=== PATIENT | male | born 1960 | race Caucasian/White ===

== ENCOUNTER 2024-07-15 13:09 | Inpatient (IN) | payer OTHER, SELFPAY ==
[2024-07-15] VITALS (7 sets, daily range): BP systolic 143–175; BP diastolic 88–101; PULSE 61–69; RESP 18; TEMP 36.7–36.8; O2SAT 95–99; BMI 24.4
--- NOTE | 2024-07-15 13:11 | XR_ITS ---
WS: [id number] Portable AP upright chest, 07/15/2024 Clinical Data: cp Comparison: None, Findings: No nodules, masses or effusions are seen. The heart is normal. The pulmonary vascularity is not increased. No pneumonia or pneumothorax is seen. The aortic arch and descending thoracic aorta s how minimal tortuosity. XR/XR chest 1V portable [id number] Impression: Atherosclerosis.
--- NOTE | 2024-07-15 13:11 | ECG_ITS ---
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 Measurements Intervals [place] Rate: 66 P: -31 NV: 208 QRS: 29 QRSD: 100 T: 37 QT: 376 QTc: 395 Interpretive Statements SINUS RHYTHM No previous ECG available for comparison Electronically Signed On 07-15-2024 15:09:02 FRUIT CHECKER by Albert Sweet M.D. [id number]
[2024-07-15 14:21] LABS: Basophils % 0.7 %; Eosinophils % 0.2 %; Hematocrit 35.5 % (37-53); Lymphocytes # 0.5 10^3/uL (0.8-4.8); Lymphocytes % 11.3 %; Mean Corpuscular HGB Conc 34.9 g/dL (30-55); Mean Corpuscular Hemoglobin 33.9 pg (27-33); Mean Platelet Volume 7.9 fL (7.4-10.4); Monocytes # 0.3 10^3/uL (0.2-0.9); Neutrophils # 3.34 10^3/uL (1.8-7.7); Neutrophils % 78.4 %; Nucleated Red Blood Cells % 0 %; Platelet Count 205 10^3/cmm (157-399); Red Blood Count 3.66 10^6/uL (3.85-5.65); Red Cell Distribution Width 11.1 % (12.1-15.1); White Blood Count 4.26 10^3/uL (3.29-11.43)
[2024-07-15 14:42] LABS: Troponin(5th) Baseline 10 ng/L (0-15)
[2024-07-15 14:44] LABS: Alanine Aminotransferase 37 U/L (0-41); Albumin Level 4.7 g/dL (3.5-5.2); Alkaline Phosphatase 90 U/L (40-130); Anion Gap 15.5 (5-19); Aspartate Amino Transferase 32 U/L (0-40); Blood Urea Nitrogen 10 mg/dL (8-23); Calcium 9.1 mg/dL (8.5-10.5); Carbon Dioxide 24 mmol/L (22-29); Chloride 88 mmol/L (98-107); Creatinine Clr Calc Pharmacy 108.6508; Globulin 2.5 g/dL (1.3-4.6); Glomerular Filtration Rate 98.3 mL/min (90-130); Glucose 118 mg/dL (65-115); Osmolality Calculated 256 mOsm/kg (285-295); Potassium 4.5 mmol/L (3.5-5.1); Sodium 123 mmol/L (136-145); Total Bilirubin 0.3 mg/dL (0.15-1.2); Total Protein 7.2 g/dL (6.6-8.7)
--- NOTE | 2024-07-15 15:03 | ED_ITS ---
HPI - Chest Pain 2 General: Chief Complaint: Chest Pain Stated Complaint: weakness and tightness in chest Time Seen by Provider: 07/15/24 14:54 Source: patient Mode of arrival: ambulatory Limitations: no limitations History of Present Illness: 63-year-old male states that he started having some chest pains earlier today states that it is a sharp pain is since resolved states he is also been having some generalized weakness he said that is been going for some time he denies any fevers denies any shortness of breath he denies any vomiting or diarrhea has history of hypertension no other medical issues in the past. Associated symptoms: Deny abdominal pain, dyspnea, fever(s), nausea or vomiting Related Data Home Medications Medication Instructions Recorded Confirmed lansoprazole 15 mg capsule,delayed 15 mg PO DAILY 09/26/22 09/26/22 release (Prevacid 24Hr) lisinopril 10 mg tablet 10 mg PO DAILY 09/26/22 09/26/22 tamsulosin 0.4 mg capsule (Flomax) 0.4 mg PO DAILY 09/26/22 09/26/22 Allergies Allergy/AdvReac Type Severity Reaction Status Date / Time Sulfa (Sulfonamide Allergy Unknown Unknown Verified 07/15/24 13:41 Antibiotics) Review of Systems 2 Const: Reports: fatigue; Denies: fever(s), chills, body aches or change in appetite ENMT: Denies: throat pain or dental pain Card: Reports: chest pain Resp: Denies: dyspnea GI: Denies: abdominal pain, nausea, vomiting or diarrhea Musc: Denies: neck pain or back pain Skin/Breast: Denies: rash Neuro: Denies: headache(s) PFSH ED 2 PFSH: Medical History (Updated 07/15/24 @ 15:10 by Miko Avelar MD) BPH (benign prostatic hyperplasia) Hypertension Social History Smoking and tobacco/nicotine status: never used tobacco/nicotine Physical Exam 2 Const: COMMON NORMALS: patient oriented x3 HENMT: COMMON NORMALS: normocephalic and atraumatic HEAD & SCALP: n ormocephalic and atraumatic Eye: COMMON NORMALS: Equal, round and reactive pupils present and EOMs intact bilaterally PUPIL: Yes Equal, round and reactive pupils present Neck/C-Spine: COMMON NORMALS: full ROM and supple Chest: COMMONS NORMALS: normal inspection of the chest Resp: COMMON NORMALS: normal respiratory effort, No retractions, No use of accessory muscles and clear to auscultation bilaterally AUSCULTATION: clear to auscultation bilaterally Cardio: COMMON NORMALS: regular rate, regular rhythm and No murmurs present (Cardio) RATE: regular rate RHYTHM: regular rhythm Extremity: COMMON NORMALS: normal to inspection and full ROM Neuro: COMMON NORMALS: patient oriented x3, moves all extremities and no focal motor deficits Psych: COMMON NORMALS: mental status grossly normal, Normal thought process present and cooperative THOUGHT PROCESS: Normal thought process present Skin: COMMON NORMALS: no rashes or lesions noted and no wounds GENERAL SKIN EXAM: no rashes or lesions noted Course 2 Vital Signs: Vital signs: Vital Signs Temperature 98.1 F 07/15/24 13:45 Pulse Rate 68 07/15/24 13:45 Respiratory Rate 18 07/15/24 13:45 Blood Pressure 175/91 07/15/24 13:45 Pulse Oximetry 98 07/15/24 13:45 MDM - Chest Pain Medical Decision Making Patient presents here with chest pain initial troponin here is negative he had some weakness as well his sodium here is 123 no known history of hyponatremia I spoke to the hospitalist will admit for hyponatremia. Medical Records I reviewed the patient's medical records. Lab Data I reviewed the patient's lab results. 07/15/24 14:15 07/15/24 14:15 Radiology Impressions Chest X-Ray 07/15/24 13:11 Impression: Atherosclerosis. Laboratory Results WBC 4.26 10^3/uL (3.29-11.43) 07/15/24 14:15 RBC 3.66 10^6/uL (3.85-5.65) L 07/15/24 14:15 Hgb 12.40 g/dL (11.27-16.99) 07/15/24 14:15 Hct 35.5 % (37-53) L 07/15/24 14:15 MCV 97.0 fl (82-101) 07/15/24 14:15 MCH 33.9 pg (27-33) H 07/15/24 14:15 MCHC 34.9 g/dL (30-55) 07/15/24 14:15 RDW 11.1 % (12.1-15.1) L 07/15/24 14:15 Plt Count 205 10^3/cmm (157-399) 07/15/24 14:15 MPV 7.9 fL (7.4-10.4) 07/15/24 14:15 Neut % (Auto) 78.4 % 07/15/24 14:15 Lymph % (Auto) 11.3 % 07/15/24 14:15 Winkler % (Auto) 8.0 % 07/15/24 14:15 Eos % (Auto) 0.2 % 07/15/24 14:15 Baso % (Auto) 0.7 % 07/15/24 14:15 Neut # (Auto) 3.34 10^3/uL (1.8-7.7) 07/15/24 14:15 Lymph # (Auto) 0.5 10^3/uL (0.8-4.8) L 07/15/24 14:15 Winkler # (Auto) 0.3 10^3/uL (0.2-0.9) 07/15/24 14:15 Eos # (Auto) 0.0 10^3/uL (0.0-0.8) 07/15/24 14:15 Baso # (Auto) 0.0 10^3/uL (0.0-0.1) 07/15/24 14:15 Nucleated RBC % (auto) 0 % 07/15/24 14:15 Nucleated RBCs # 0.0 /100WBC 07/15/24 14:15 Sodium 123 mmol/L (136-145) L 07/15/24 14:15 Potassium 4.5 mmol/L (3.5-5.1) 07/15/24 14:15 Chloride 88 mmol/L (98-107) L 07/15/24 14:15 Carbon Dioxide 24 mmol/L (22-29) 07/15/24 14:15 Anion Gap 15.5 (5-19) 07/15/24 14:15 BUN 10 mg/dL (8-23) 07/15/24 14:15 Creatinine 0.8 mg/dL (0.7-1.2) 07/15/24 14:15 GFR Calculation 98.3 mL/min (90-130) 07/15/24 14:15 Glucose 118 mg/dL (65-115) H 07/15/24 14:15 Calculated Osmolality 256 mOsm/kg (285-295) L 07/15/24 14:15 Calcium 9.1 mg/dL (8.5-10.5) 07/15/24 14:15 Total Bilirubin 0.3 mg/dL (0.15-1.2) 07/15/24 14:15 AST 32 U/L (0-40) 07/15/24 14:15 ALT 37 U/L (0-41) 07/15/24 14:15 Alkaline Phosphatase 90 U/L (40-130) 07/15/24 14:15 Troponin T Baseline 10 ng/L (0-15) 07/15/24 14:15 Total Protein 7.2 g/dL (6.6-8.7) 07/15/24 14:15 Albumin 4.7 g/dL (3.5-5.2) 07/15/24 14:15 Globulin 2.5 g/dL (1.3-4.6) 07/15/24 14:15 All radiology interpretation(s) finalized by discharge Discharge Plan Discharge Patient Disposition: Admitted As Inpatient Clinical Impression: Chest pain, Hyponatremia Condition: Stable Prescriptions: No Action lisinopril 10 mg tablet 10 mg PO DAILY tamsulosin [Flomax] 0.4 mg capsule 0.4 mg PO DAILY lansoprazole [Prevacid 24Hr] 15 mg capsule,delayed release(DR/EC) 15 mg PO DAILY Coding Level of Care Code ED Hypoid Gear Generator for Thong Taylor
--- NOTE | 2024-07-15 15:09 | PM.HP ---
Providers/Chief Complaint Chief Complaint: weakness and tightness in chest History of Present Illness Mustapha Solo is a 63 year old male with past medical history of hypertension, daily beer drinker with possible history of hyponatremia in the past which was thought to be in setting of beer consumption by her PCP came to the ER today because of chest pressure along with dizziness which happened earlier today morning while he was working at home. Symptoms started when he was trying to get wood in his basement. Complained of chest pressure which was central nonradiating with some heaviness in his shoulder along with dizziness. Denied any diaphoresis nausea or vomiting. Had similar complaints twice almost a month ago while he was working. Did not have any similar symptoms in between both at rest or exertion. Denies any history of smoking, personal history of CAD. Denies any family history of CAD but does carry significant stroke history in family. In the ER he was found to have hyponatremia with sodium level of 123 hence medicine team was consulted. Patient currently denies any nausea vomiting, headache. Review of Systems General: Reports: 10 or more systems reviewed and unremarkable except in HPI and below Const: Denies: fever(s), chills, body aches, change in appetite, change in weight, malaise, night sweats, diaphoresis, change in sleep pattern, daytime sleepiness or snoring Eyes: Denies: change in vision, blurry vision, photophobia, eye discomfort or eye discharge ENMT: Denies: throat pain, enlarged tonsils, hoarseness, mouth pain, oral sores, dry mouth, tinnitus, nasal congestion or post nasal drip Card: Denies: chest pain, palpitations, irregular heart rhythm, edema, swelling of feet/ankles, lightheadedness, syncope, pre-syncope, dyspnea on exertion, orthopnea, leg pain with exertion or acrocyanosis Resp: Denies: dyspnea, productive cough, non-productive cough, wheezing, stridor, pain on inspiration, change in phlegm color, hemoptysis or chest congestion GI: Denies: abdominal pain, nausea, vomiting, hematemesis, coffee ground emesis, dysphagia, heartburn, diarrhea, constipation, bloating, GI cramping, change in bowel habits, pain on defecation, hematochezia or melena : Denies: flank pain, difficulty urinating, dysuria, urinary frequency, urinary urgency, urinary hesitancy, urinary dribbling, difficulty starting urination, change in urine stream, nocturia or hematuria Musc: Denies: neck pain, back pain, extremity pain, joint pain, joint swelling, joint redness, joint stiffness or limited range of motion Neuro: Denies: headache(s), numbness in extremities, weakness in extremities, sensory changes, lack of coordination, difficulty walking, frequent falls, dizziness, vertigo, confusion, Slurred speech present, difficulty communicating thoughts or seizure-like activity Psych: Denies: anxiety, depression, mood swings, panic attacks, hopelessness or irritability Endo: Denies: polyuria, polydipsia, tired all the time, cold intolerance, excessive sweating, flushing or heat intolerance Buster/Lymph: Denies: easy bruising or easy bleeding All/Imm: Denies: tongue swelling, facial swelling or acute wheezing Medications/Allergies Home Medications Medication Instructions Recorded Confirmed Last Taken Type lansoprazole 15 mg capsule,delayed 15 mg PO DAILY 09/26/22 07/15/24 07/15/24 History release (Prevacid 24Hr) tamsulosin 0.4 mg capsule (Flomax) 0.4 mg PO DAILY 09/26/22 07/15/24 07/15/24 History opytzifixjg-dncacekva-rgb C-Mn 500 1 cap PO DAILY 07/15/24 07/15/24 07/15/24 History mg-400 mg capsule olmesartan 20 mg tablet 20 mg PO DAILY 07/15/24 07/15/24 07/15/24 History vitamin with calcium 1 tab PO DAILY 07/15/24 07/15/24 07/15/24 History no.72-iron 27 mg-folic acid 1 mg tablet (WesTab Plus) Allergies Allergy/AdvReac Type Severity Reaction Status Date / Time Sulfa (Sulfonamide Allergy Unknown Unknown Verified 07/15/24 13:41 Antibiotics) PFSH Acute PFSH: Medical History (Updated 07/15/24 @ 15:10 by Miko Avelar MD) BPH (benign prostatic hyperplasia) Hypertension Family History (Updated 07/15/24 @ 16:58 by Miko Avelar MD) Other Stroke Denies family history of CAD (coronary artery disease) Social History (Updated 07/15/24 @ 16:57 by Miko Avelar MD) Smoking and tobacco/nicotine status: never used tobacco/nicotine Alcohol intake: current Alcohol intake frequency: 3 or more drinks per day Alcohol type: beer Substance/Drug Use: never Adopted: No Caregiver/support person: Yes Lives independently: Yes Household members: spouse Housing: House Marital status: Vitals/I&O/Wt Last Vital Signs Temp 98.1 F 07/15/24 13:45 Pulse 68 07/15/24 13:45 Resp 18 07/15/24 13:45 BP 175/91 07/15/24 13:45 Pulse Ox 98 07/15/24 13:45 07/15/24 07/15/24 07/15/24 06:59 14:59 22:59 Intake Total 0 / 0 Balance 0 / 0 Weight last 48 hrs Weight 81.647 kg Physical Exam Narrative: General: No acute distress, AO x3, dehydrated HEENT: PERRLA, pupils bilaterally equal and reactive Chest: Normal vesicular breath sounds, no added sounds, equal good air entry bilaterally CVS: S1-S2 regular, no murmurs, no tachycardia, no gallops, no rubs Abdomen: Soft, nontender, no organomegaly, bowel sounds present Neuro: No focal deficits, no facial deformity, AO x3, power 5/5 in all limbs Data 07/15/24 14:15 07/15/24 14:15 A&P Assessment and plan (1) Hyponatremia: Likely acute on chronic. Do not have baseline sodium levels. Could be in setting of chronic alcohol use. Drinks 3 to 4 cans of beer daily. Check urine lites, urine creatinine, urinalysis. Appreciate serum osmolality. Start on normal saline at 75 cc/h. Check sodium levels every 8 hours. Target correction 6 to 8 mEq in next 24 hours. Check TSH, B12, folate levels, A1c, lipid panel. (2) Chest pain: Atypical. Could be in setting of gastritis. Cycle troponin, check A1c, lipid panel. Check echocardiogram. N.p.o. after midnight for Lexiscan stress test. (3) Hypertension: Goal blood pressure less than 140/90 mmHg. Continue with home dose of olmesartan. Uptitrate as per goal blood pressure. (4) BPH (benign prostatic hyperplasia): Continue with Flomax. Plan Chronic alcohol use: Drinks 3 to 4 cans of beer daily. Denies any history of withdrawal symptoms. [facility] protocol. Full code Regular diet, n.p.o. after midnight Protonix OPD prophylaxis Heparin 5000 every 12 hourly for DVT prophylaxis Attestations Medical Necessity Statement*: Admission for more than 2 midnights for management of hyponatremia, chest pressure while ACS is ruled out Diagnoses Hyponatremia E87.1 Chest pain R07.9 Hypertension I10 BPH (benign prostatic hyperplasia) N40.0
--- NOTE | 2024-07-15 15:11 | ECG_ITS ---
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 Measurements Intervals [place] Rate: 67 P: 16 [place]: 204 QRS: 11 QRSD: 104 T: 18 QT: 379 QTc: 401 Interpretive Statements SINUS RHYTHM Compared to ECG 07/15/2024 13:42:45 No significant changes Electronically Signed On 07-15-2024 15:11:13 PRODUCT SUPPORT TECHNICIAN by Albert Sweet M.D. [id number]
[2024-07-15] MEDS: sodium chloride 0.9% 1,000 ML 999 ML IV (15:32)
[2024-07-15 15:47] LABS: Alcohol Level < 10 mg/dL (0-10)
[2024-07-15 15:54] LABS: Procalcitonin 0.04 ng/mL (0-0.5)
[2024-07-15 15:56] LABS: Bilirubin Urine Negative (Negative); Blood Urine Negative (Negative); Glucose Urine UA Negative (Normal); Ketones Urine Negative (Negative); Leukocyte Esterase Urine Negative (Negative); Nitrate Urine Negative (Negative); Protein Urine Negative (Negative); Specific Gravity, Urine 1.004 (1.005-1.030); Urine Appearance Clear (CLEAR); Urine Color Yellow (Yellow); Urobilinogen Urine 0.2 mg/dL (Negative); pH Urine 6.5 (5-7)
[2024-07-15 16:01] LABS: Bacteria Urine None Seen /hpf; Hyaline Casts Urine 0-4 /lpf; RBC Urine 0-2 /hpf (0-2); Squamous Epithelial Cell Urine 0-5 /hpf (0-5); WBC Urine 0-5 /hpf (0-5)
[2024-07-15 16:13] LABS: Potassium, Radom Urine 10 mmol/L; Urine Random Chloride 30 mmol/L; Urine Random Sodium 28 mmol/L
--- NOTE | 2024-07-15 17:02 | USCV_ITS ---
Mustapha Solo Age: 63 Gender: M : 1960 Exam Date: 07/15/2024 19:25 Ordering Phys: Miko Avelar MD Technologist: KRISTEN Exam Location: [facility] Indication: htn BP: 175 / 91 HR: 65 Rhythm: Sinus Technical Quality: Adequate MEASUREMENTS (Male / Female) Normal Values 2D ECHO LV Diastolic Diameter PLAX 4.7 cm 4.2 - 5.9 / 3.9 - 5.3 cm IVS Diastolic Thickness 1.5 cm 0.6 - 1.0 / 0.6 - 0.9 cm IVS Systolic Thickness 1.7 cm LVPW Diastolic Thickness 1.3 cm 0.6 - 1.0 / 0.6 - 0.9 cm LVPW Systolic Thickness 1.7 cm LVOT Diameter 2.1 cm LV Ejection Fraction 2D Teich 67.6 % LV Ejection Fraction MOD 4C 60.8 % LV Ejection Fraction MOD 2C 66.5 % LV Ejection Fraction 2C AL 66.1 % LA Diameter 3.2 cm LA Sys Volume AL 70.2 cm cubed LA Sys Volume Index AL 34.4 cm cubed/m squared Aorta at Sinotubular Diameter 3.0 cm IVC Diameter 1.4 cm M-MODE LA Ao Ratio MM 1.4 AV Cusp Separation MM 2.1 cm DOPPLER AV Peak Velocity 127.0 cm/s LVOT Peak Velocity 101.0 cm/s AV Area Cont Eq vti 2.7 cm squared AV Area Cont Eq pk 2.7 cm squared MV Peak Velocity 100.0 cm/s MV Area PHT 2.6 cm squared Mitral E to A Ratio 0.9 TV Peak E Velocity 49.0 cm/s PV Peak Velocity 101.0 cm/s FINDINGS Left Ventricle Normal left ventricular size and systolic function, EF 65%.no regional wall motion abnormalities. Mild left ventricular hypertrophy. Some features of grade 1 left-ventricular diastolic dysfunction Right Ventricle The right ventricle is normal in size and function. Right Atrium The right atrium is normal in size. Left Atrium The left atrium is normal in size. Mitral Valve No gross morphologic abnormalities noted Aortic Valve No gross morphologic abnormalities noted Tricuspid Valve No gross morphologic abnormalities noted Pulmonic Valve No gross morphologic abnormalities noted Pericardium Normal pericardium without effusion. Aorta Normal ascending aorta dimension. IVC Normal inferior vena cava. CONCLUSIONS Normal left ventricular size and systolic function, EF 65%.no regional wall motion abnormalities. Mild left ventricular hypertrophy. Some features of grade 1 left-ventricular diastolic dysfunction. Normal cardiac chamber sizes There is no pericardial effusion. There are no intracardiac masses. No similar previous studies are available for comparison Dr Rosaura Rios MD FACC (Electronically Signed) Final Date: 15 July 2024 23:58 S
[2024-07-15 17:13] LABS: Troponin 5 2HR 9.16 ng/L (0-15)
[2024-07-15 17:17] LABS: Troponin 5 2HR Delta -0.84 ABS# (0-10)
[2024-07-15] MEDS: sodium chloride 0.9% 1,000 ML 75 ML IV (17:30)
[2024-07-15] MEDS: pantoprazole 40 mg SDV IVP (17:44)
--- NOTE | 2024-07-15 17:55 | ECG_ITS ---
[employer] 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 Interpretive Statements Lung unchanged pre/post procedure; Intraprocedure shortess of breath; Symptoms resoled by discharge PROCEDURE: At the baseline, the EKG revealed sinus bradycardia with a rate of 57 bpm. First-degree AV block.. The baseline heart was 57 bpm with a blood pressue of 151/99 mm of Hg Lexiscan was infused over a period of 20 seconds. A total of 0.4 milligrams of Lexiscan was infused. The stress phase was continued for a total of 5 minutes. Heart rate at the end of the stress phase was 76 bpm with a blood pressure 158/93 mm of Hg. The EKG at the peak infusion revealed no significant changes. Sestamibi was injected 20 seconds after the Lexiscan infusion. Heart rate at the end of the recovery phase was 76 bpm with a blood pressure of 162/97 mm of Hg. CONCLUSION: 1. No significant EKG changes with the LexiScan infusion 2. No LexiScan induced chest pain or cardiac arrhythmia 3. Normal blood pressure and heart rate response 4. Sestamibi/sestamibi perfusion scan pending; see separate report. Electronically Signed On 07-18-2024 12:49:01 EGG PRODUCER by Rosaura Rios M.D. [id number]
[2024-07-15] MEDS: heparin 5,000 unit/mL INJ 1 mL 5000 UNIT SUBCUT (18:31)
[2024-07-15 19:33] LABS: Anion Gap 21.3 (5-19); Blood Urea Nitrogen 11 mg/dL (8-23); Calcium 9.4 mg/dL (8.5-10.5); Carbon Dioxide 23 mmol/L (22-29); Chloride 90 mmol/L (98-107); Creatinine Clr Calc Pharmacy 124.1723; Glomerular Filtration Rate 114.6 mL/min (90-130); Glucose 106 mg/dL (65-115); Iron 102 ug/dL (59-158); Osmolality Calculated 270 mOsm/kg (285-295); Percent Saturation 35.9 % (20-50); Potassium 4.3 mmol/L (3.5-5.1); Sodium 130 mmol/L (136-145); Thyroid Stimulating Hormone 2.65 uIU/mL (0.27-4.20); Total Iron Binding Capacity 284 mcg/dl; Unsaturated Iron Binding 182 ug/dL (112-347); Vitamin B12 398 pg/mL (232-1245)
[2024-07-15 20:45] LABS: Troponin 5 6HR 12.17 ng/L (0-15); Troponin 5 6HR Delta 2.17 ng/L (0-12)
[2024-07-16 01:39] LABS: Anion Gap 15.3 (5-19); Blood Urea Nitrogen 10 mg/dL (8-23); Carbon Dioxide 23 mmol/L (22-29); Chloride 95 mmol/L (98-107); Creatinine Clr Calc Pharmacy 124.1723; Glomerular Filtration Rate 114.6 mL/min (90-130); Glucose 97 mg/dL (65-115); Osmolality Calculated 267 mOsm/kg (285-295); Potassium 4.3 mmol/L (3.5-5.1); Sodium 129 mmol/L (136-145)
[2024-07-16 03:59] VITALS: BP 151/90; PULSE 57; RESP 17; TEMP 36.7; O2SAT 95
[2024-07-16 05:43] LABS: Basophils % 0.5 %; Eosinophils # 0.1 10^3/uL (0.0-0.8); Eosinophils % 2.6 %; Hematocrit 34.9 % (37-53); Lymphocytes % 24.8 %; Mean Corpuscular HGB Conc 35.8 g/dL (30-55); Mean Corpuscular Hemoglobin 33.7 pg (27-33); Mean Corpuscular Volume 94.1 fl (82-101); Mean Platelet Volume 8.2 fL (7.4-10.4); Monocytes # 0.4 10^3/uL (0.2-0.9); Monocytes % 10.5 %; Neutrophils # 2.37 10^3/uL (1.8-7.7); Neutrophils % 60.6 %; Nucleated Red Blood Cells % 0 %; Platelet Count 215 10^3/cmm (157-399); Red Blood Count 3.71 10^6/uL (3.85-5.65); Red Cell Distribution Width 11.1 % (12.1-15.1); White Blood Count 3.91 10^3/uL (3.29-11.43)
[2024-07-16 06:13] LABS: Alanine Aminotransferase 37 U/L (0-41); Albumin Level 4.3 g/dL (3.5-5.2); Alkaline Phosphatase 84 U/L (40-130); Anion Gap 16.4 (5-19); Aspartate Amino Transferase 32 U/L (0-40); Blood Urea Nitrogen 10 mg/dL (8-23); Calcium 9.3 mg/dL (8.5-10.5); Carbon Dioxide 24 mmol/L (22-29); Chloride 94 mmol/L (98-107); Chol HDL Ratio 2.04 mg/dL (1.0-5.00); Cholesterol 226 mg/dL (0-200); Creatinine Clr Calc Pharmacy 113.1796; Globulin 2.8 g/dL (1.3-4.6); Glomerular Filtration Rate 98.3 mL/min (90-130); Glucose 104 mg/dL (65-115); HDL Cholesterol 111 mg/dL (60-100); LDL Cholesterol Calculated 107 mg/dL (50-129); LDL HDL Ratio 0.96 RATIO (0.00-3.22); Magnesium 1.8 mg/dL (1.7-2.3); Osmolality Calculated 269 mOsm/kg (285-295); Phosphorus 4.3 mg/dL (2.5-4.5); Potassium 4.4 mmol/L (3.5-5.1); Sodium 130 mmol/L (136-145); Total Bilirubin 0.5 mg/dL (0.15-1.2); Total Protein 7.1 g/dL (6.6-8.7); Triglycerides 40 mg/dL (0-150)
[2024-07-16 06:17] LABS: Procalcitonin 0.05 ng/mL (0-0.5)
[2024-07-16 06:19] LABS: Estmated Average Glucose 100; Hemoglobin A1C 5.1 % (4.0-6.0)
[2024-07-16] MEDS: regadenoson 0.4 Mg/5 ml Syringe IVP (07:02)
[2024-07-16 07:18] VITALS: BP 162/97; PULSE 68
[2024-07-16 07:28] LABS: Folate Level > 20.0 ng/mL (4.5-32.2)
[2024-07-16] MEDS: thiamine 100 mg Tablet PO (08:29)
[2024-07-16] MEDS: heparin 5,000 unit/mL INJ 1 mL 5000 UNIT SUBCUT (08:29)
[2024-07-16] MEDS: losartan 50 mg Tablet PO ×2 (08:30→12:43)
[2024-07-16] MEDS: multivitamin therapeutic Tablet 1 TAB PO (08:30)
[2024-07-16] MEDS: tamsulosin 0.4 mg Capsule PO (08:30)
[2024-07-16] MEDS: folic acid 1 mg Tablet PO (08:30)
[2024-07-16 10:00] VITALS: BMI 26.8
--- NOTE | 2024-07-16 10:43 | PC.CHAP ---
Pastoral Care Encounter/Spiritual Assessment Type of Contact [] Declined toy maker visit [] Patient/Family/Request visit [] Outpatient visit [] Follow-up visit [] Physician referral [] Code/Alert [x] Routine visit [] Staff referral [] Actively dying [] Patient sleeping [x] Family support [] [] Out of room [] Palliative care [] [] Receiving care in room [] Pre-surgical visit [] Trauma [] Long length of stay [] ICU visit [] Other: Relational/Emotional Strength [x] Patient feels connected with others/family/visitors/staff [] Distress [] Loneliness/isolation [] Abandonment Spirituality of Patient [x] Person of Caro [] Attends Church of their Caro [x] Believes in Prayer [] Reads Bible or Advent materials [] There are Spiritual issues to be addressed Product Manager Financial Services Interventions [x] Prayer [x] Active listening [] Non-anxious presence [x] Spiritual/emotional support [] Crisis/trauma care [] Spiritual counseling [] Bereavement support [] Provided bereavement packet [] Provided Bible/devotional materials [] Provided toy/stuffed animal, coloring book to patient or family member [] Provided Communion [] Anointing/Bonnyman [] Salvation [x] Completed spiritual assessment [] Other: Impact on Illness or Injury [] Angry [] Fearful [] Anxious [] Often cries [] Exhaustion [] Unable to work [] Unable to attend sabianist [] Unable to walk/stand [] Unable to read [] Unable to drive [] Unable to eat/drink [] Unable to sleep [] Unable to be with family [] Patient intubated [] Other: Summary Time spent with patient 5 min
[2024-07-16 11:46] LABS: Anion Gap 13.2 (5-19); Blood Urea Nitrogen 8 mg/dL (8-23); Calcium 9.6 mg/dL (8.5-10.5); Carbon Dioxide 24 mmol/L (22-29); Chloride 93 mmol/L (98-107); Creatinine Clr Calc Pharmacy 129.3481; Glomerular Filtration Rate 114.6 mL/min (90-130); Glucose 112 mg/dL (65-115); Osmolality Calculated 261 mOsm/kg (285-295); Potassium 4.2 mmol/L (3.5-5.1); Sodium 126 mmol/L (136-145)
[2024-07-16 12:00] VITALS: BP 156/93; PULSE 61; RESP 17; TEMP 36.8; O2SAT 97
[2024-07-16] MEDS: sodium chloride 0.9% 1,000 ML 75 ML IV (12:43)
[2024-07-16] MEDS: sodium chloride 1 gm Tablet PO (12:43)
--- NOTE | 2024-07-16 14:02 | PM.DCS ---
Discharge Providers Date of Admission: 07/15/24 16:43 Date of Discharge: July 16, 2024 Attending Provider at Admission: Miko Avelar MD Attending Provider at Discharge: Miko Avelar MD Diagnoses at Discharge Discharge Diagnosis (1) Hyponatremia: Status: Acute (2) Chest pain: Status: Acute (3) Hypertension: Status: Acute (4) BPH (benign prostatic hyperplasia): Status: Acute Reason for Visit Reason for Visit: weakness and tightness in chest Hospital Course Hospital Course Mustapha Solo is a 63 year old male with past medical history of hypertension, daily beer drinker with possible history of hyponatremia in the past which was thought to be in setting of beer consumption by her PCP came to the ER today because of chest pressure along with dizziness which happened earlier today morning while he was working at home. Symptoms started when he was trying to get wood in his basement. Complained of chest pressure which was central nonradiating with some heaviness in his shoulder along with dizziness. Denied any diaphoresis nausea or vomiting. Had similar complaints twice almost a month ago while he was working. Did not have any similar symptoms in between both at rest or exertion. Denies any history of smoking, personal history of CAD. Denies any family history of CAD but does carry significant stroke history in family. In the ER he was found to have hyponatremia with sodium level of 123 hence medicine team was consulted. Patient currently denies any nausea vomiting, headache. Patient was admitted to the hospital further evaluation and management of hyponatremia and chest pressure. There is a concern for acute on chronic hyponatremia in setting of chronic alcohol use due to dehydration for which she is tired and IV fluids after which his sodium level improved to 130. He underwent Lexiscan stress test on 07/16 which was negative for acute ischemia. He is been discharged hemodynamically stable condition back home on oral salt tablets for next 2 weeks, increased dose of olmesartan for goal blood pressure of less than 140/90 mmHg with advised to check his blood pressure daily at home maintain a blood pressure to further adjustment of antihypertensives. He has been advised in detail to avoid alcohol as much as possible. Physical Exam Narrative: General: No acute distress, AO x3, HEENT: PERRLA, pupils bilaterally equal and reactive Chest: Normal vesicular breath sounds, no added sounds, equal good air entry bilaterally CVS: S1-S2 regular, no murmurs, no tachycardia, no gallops, no rubs Abdomen: Soft, nontender, no organomegaly, bowel sounds present Neuro: No focal deficits, no facial deformity, AO x3, power 5/5 in all limbs Discharge Data Studies Completed and Pending Completed Studies During Hospitalization Category Date Time Status Sestamibi Stress Test Request Routine Exams 07/15/24 17:55 Draft XR chest 1V portable [id number] Stat Exams 07/15/24 13:11 Completed NM karely perf SPECT r/s* [id number] Routine Nuc Med 07/16/24 17:55 Completed CV. echo complete* [id number] Routine Ultrasound 07/15/24 17:02 Completed Pending at discharge Category Date Time Status Amylase Routine Lab 07/15/24 18:20 Received BMP [Basic Metabolic Panel] Q8H Lab 07/16/24 18:00 Ordered Radiology Impressions Chest X-Ray 07/15/24 13:11 Impression: Atherosclerosis. Lexiscan stress test: PERFUSION FINDINGS Uniform myocardial tracer uptake with no significant perfusion abnormalities FUNCTIONAL RESULTS (calculated via Gated SPECT) Stress Image LV EF (%): 59 Stress EDV (mL):113 TID: 1.06 Stress ESV (mL):46 FUNCTIONAL FINDINGS: Segmental wall motion analysis revealing no gross wall motion abnormalities IMPRESSIONS 1. Myocardial perfusion imaging revealing uniform myocardial tracer uptake with no significant Perfusion abnormalities 2. Normal LV ejection fraction of 59%.. 3. LV wall motion analysis revealing no gross wall motion abnormalities. 4. Normal LV volume Low probability for coronary ischemia, based on the above findings Dr Rosaura Rios MD [facility] (Electronically Signed) Final Date: 16 July 2024 Echocardiogram: CONCLUSIONS Normal left ventricular size and systolic function, EF 65%.no regional wall motion abnormalities. Mild left ventricular hypertrophy. Some features of grade 1 left-ventricular diastolic dysfunction. Normal cardiac chamber sizes There is no pericardial effusion. There are no intracardiac masses. No similar previous studies are available for comparison Dr Rosaura Rios MD [facility] (Electronically Signed) Final Date: 15 July 2024 Laboratory Results WBC 3.91 10^3/uL (3.29-11.43) 07/16/24 05:10 RBC 3.71 10^6/uL (3.85-5.65) L 07/16/24 05:10 Hgb 12.50 g/dL (11.27-16.99) 07/16/24 05:10 Hct 34.9 % (37-53) L 07/16/24 05:10 MCV 94.1 fl (82-101) 07/16/24 05:10 MCH 33.7 pg (27-33) H 07/16/24 05:10 MCHC 35.8 g/dL (30-55) 07/16/24 05:10 RDW 11.1 % (12.1-15.1) L 07/16/24 05:10 Plt Count 215 10^3/cmm (157-399) 07/16/24 05:10 MPV 8.2 fL (7.4-10.4) 07/16/24 05:10 Neut % (Auto) 60.6 % 07/16/24 05:10 Lymph % (Auto) 24.8 % 07/16/24 05:10 [place] % (Auto) 10.5 % 07/16/24 05:10 Eos % (Auto) 2.6 % 07/16/24 05:10 Baso % (Auto) 0.5 % 07/16/24 05:10 Neut # (Auto) 2.37 10^3/uL (1.8-7.7) 07/16/24 05:10 Lymph # (Auto) 1.0 10^3/uL (0.8-4.8) 07/16/24 05:10 [place] # (Auto) 0.4 10^3/uL (0.2-0.9) 07/16/24 05:10 Eos # (Auto) 0.1 10^3/uL (0.0-0.8) 07/16/24 05:10 Baso # (Auto) 0.0 10^3/uL (0.0-0.1) 07/16/24 05:10 Nucleated RBC % (auto) 0 % 07/16/24 05:10 Nucleated RBCs # 0.0 /100WBC 07/16/24 05:10 Sodium 126 mmol/L (136-145) L 07/16/24 10:44 Potassium 4.2 mmol/L (3.5-5.1) 07/16/24 10:44 Chloride 93 mmol/L (98-107) L 07/16/24 10:44 Carbon Dioxide 24 mmol/L (22-29) 07/16/24 10:44 Anion Gap 13.2 (5-19) 07/16/24 10:44 BUN 8 mg/dL (8-23) 07/16/24 10:44 Creatinine 0.7 mg/dL (0.7-1.2) 07/16/24 10:44 GFR Calculation 114.6 mL/min (90-130) 07/16/24 10:44 Glucose 112 mg/dL (65-115) 07/16/24 10:44 Estimat Average Glucose 100 07/16/24 05:10 Hemoglobin A1c 5.1 % (4.0-6.0) 07/16/24 05:10 Calculated Osmolality 261 mOsm/kg (285-295) L 07/16/24 10:44 Calcium 9.6 mg/dL (8.5-10.5) 07/16/24 10:44 Phosphorus 4.3 mg/dL (2.5-4.5) 07/16/24 05:10 Magnesium 1.8 mg/dL (1.7-2.3) 07/16/24 05:10 Iron 102 ug/dL (59-158) 07/15/24 18:20 TIBC 284 mcg/dl 07/15/24 18:20 % Saturation 35.9 % (20-50) 07/15/24 18:20 Unsat Iron Binding 182 ug/dL (112-347) 07/15/24 18:20 Total Bilirubin 0.5 mg/dL (0.15-1.2) 07/16/24 05:10 AST 32 U/L (0-40) 07/16/24 05:10 ALT 37 U/L (0-41) 07/16/24 05:10 Alkaline Phosphatase 84 U/L (40-130) 07/16/24 05:10 Troponin T Baseline 10 ng/L (0-15) 07/15/24 14:15 Troponin T 120 Minute 9.16 ng/L (0-15) 07/15/24 16:32 Delta Troponin T -0.84 ABS# (0-10) L 07/15/24 16:32 Troponin T Hi Sens 6Hr 12.17 ng/L (0-15) 07/15/24 20:15 Troponin T Hi Sens 6Hr Delta 2.17 ng/L (0-12) 07/15/24 20:15 Total Protein 7.1 g/dL (6.6-8.7) 07/16/24 05:10 Albumin 4.3 g/dL (3.5-5.2) 07/16/24 05:10 Globulin 2.8 g/dL (1.3-4.6) 07/16/24 05:10 Triglycerides 40 mg/dL (0-150) 07/16/24 05:10 Triglycerides Cancelled 07/16/24 05:10 Cholesterol 226 mg/dL (0-200) H 07/16/24 05:10 Cholesterol Cancelled 07/16/24 05:10 LDL Cholesterol, Calc 107 mg/dL (50-129) 07/16/24 05:10 LDL Cholesterol, Calc Cancelled 07/16/24 05:10 HDL Cholesterol 111 mg/dL (60-100) H 07/16/24 05:10 HDL Cholesterol Cancelled 07/16/24 05:10 LDL/HDL Ratio 0.96 RATIO (0.00-3.22) 07/16/24 05:10 LDL/HDL Ratio Cancelled 07/16/24 05:10 Cholesterol/HDL Ratio 2.04 mg/dL (1.0-5.00) 07/16/24 05:10 Cholesterol/HDL Ratio Cancelled 07/16/24 05:10 Vitamin B12 398 pg/mL (232-1245) 07/15/24 18:20 Folate > 20.0 ng/mL (4.5-32.2) 07/16/24 05:10 Procalcitonin 0.05 ng/mL (0-0.5) 07/16/24 05:10 Procalcitonin Cancelled 07/16/24 05:10 TSH 2.65 uIU/mL (0.27-4.20) 07/15/24 18:20 Urine Color Yellow (Yellow) 07/15/24 15:40 Urine Appearance Clear (CLEAR) 07/15/24 15:40 Urine pH 6.5 (5-7) 07/15/24 15:40 Ur Specific [place] 1.004 (1.005-1.030) L 07/15/24 15:40 Urine Protein Negative (Negative) 07/15/24 15:40 Urine Glucose (UA) Negative (Normal) 07/15/24 15:40 Urine Ketones Negative (Negative) 07/15/24 15:40 Urine Blood Negative (Negative) 07/15/24 15:40 Urine Nitrate Negative (Negative) 07/15/24 15:40 Urine Bilirubin Negative (Negative) 07/15/24 15:40 Urine Urobilinogen 0.2 mg/dL (Negative) 07/15/24 15:40 Ur Leukocyte Esterase Negative (Negative) 07/15/24 15:40 Urine RBC 0-2 /hpf (0-2) 07/15/24 15:40 Urine WBC 0-5 /hpf (0-5) 07/15/24 15:40 Ur Squamous Epith Cells 0-5 /hpf (0-5) 07/15/24 15:40 Amorphous Sediment Not Reportable 07/15/24 15:40 Urine Bacteria None seen /hpf (NONE) 07/15/24 15:40 Hyaline Casts 0-4 /lpf H 07/15/24 15:40 Ur Random Sodium 28 mmol/L 07/15/24 15:40 Ur Random Potassium 10 mmol/L 07/15/24 15:40 Ur Random Chloride 30 mmol/L 07/15/24 15:40 Ethyl Alcohol < 10 mg/dL (0-10) 07/15/24 14:15 Vitals Last Vital Signs Temp 98.2 F 07/16/24 12:00 Pulse 61 07/16/24 12:00 Resp 17 07/16/24 12:00 BP 156/93 07/16/24 12:00 Pulse Ox 97 07/16/24 12:00 O2 Del Method Room Air 07/16/24 12:00 Discharge Plan Discharge Patient Disposition: Home Condition: Stable Prescriptions: New sodium chloride 1,000 mg Tablet,Soluble 1,000 mg PO BID Qty: 20 0RF pantoprazole [Protonix] 40 mg tablet,delayed release (DR/EC) 40 mg PO QAM Qty: 30 0RF Continued tamsulosin [Flomax] 0.4 mg capsule 0.4 mg PO DAILY [id number] C-Mn [Glucosamine Complex] 500-400 mg Capsule 1 cap PO DAILY WesTab Plus 27 mg iron- 1 mg tablet 1 tab PO DAILY Changed olmesartan 20 mg tablet 40 mg PO DAILY Qty: 30 0RF Discontinued lansoprazole [Prevacid 24Hr] 15 mg capsule,delayed release(DR/EC) 15 mg PO DAILY Discharge Orders: Discharge Order (Routine); Ordered 07/16/24 Ordered By: Miko Avelar Discharge Diet: Regular Discharge Activity: Resume usual activity and Increase activity as tolerated Patient Instructions: Opioid Safety Activity Restrictions/Additional Instructions: Dose of olmesartan has been increased to 40 mg daily. Please check your blood pressure daily at home maintain a blood pressure diary and follow-up with a primary care provider within next 2 weeks for further adjustment of antihypertensive as needed. Goal blood pressure less than 140/90 mmHg. Take Protonix daily. Please try to avoid alcohol use. Take salt tablets morning and evening for next 14 days. You should have a repeat BMP checked with your primary care provider within next 2 weeks. Discharge Attestations Time Spent in Discharge Care*: greater than 30 min Specific Discharge Activities: educating patient, educating and/or supporting family/caregiver, discussing with pcp/other providers, discussing with director of casework/social workers/dc planners, documenting/other paperwork and evaluating patient/reviewing data Status at Discharge: Cognitive status at discharge: cognitively intact, Behavioral status at discharge: cooperative, Functional status at discharge: independent ambulation, Overall status at discharge: patient is back to baseline Quality Metrics Clinical Quality Measures [ No reported AMI, CVA or VTE this stay] Coding Level of Care Code 59354 Total time (in minutes) for Discharge: 60 Diagnoses Hyponatremia E87.1 Chest pain R07.9 Hypertension I10 BPH (benign prostatic hyperplasia) N40.0
[2024-07-16 14:54] VITALS: BP 156/93; PULSE 61; RESP 16; TEMP 36.8; O2SAT 97
--- NOTE | 2024-07-16 17:55 | NMCV_ITS ---
NM karely perf SPECT r/s* [id number] SoloMustapha demarco Age: 63 Gender: M : 1960 Exam Date: 07/16/2024 06:33 Ordering Phys: Miko Avelar MD Technologist: ALEXA Galeana Exam Location: [facility] Indications: cp STRESS TEST Please see separate stress test report in [facility] for full findings IMAGE PROTOCOL Rest/Stress 1 Lexiscan Day Radiopharmaceutical Dose (mCi) Administration Site Administered by Rest: Tc-99m 11 IV ALEXA Galeana Sestamibi Stress:Tc-99m 33 IV ALEXA Watters Sestamibi Rest: 16-Jul-2024 60 Discovery 630 Stress: 16-Jul-2024 30 Discovery 630 0.4mg Lexiscan. Images obtained in supine and prone position. SPECT RESULTS Technical Quality: Good Raw Data Analysis: Normal Image Corrections: No attenuation or motion correction applied Summed Stress Score: 0 Summed Rest Score: 0 Summed Difference Score: 0 PERFUSION FINDINGS Uniform myocardial tracer uptake with no significant perfusion abnormalities FUNCTIONAL RESULTS (calculated via Gated SPECT) Stress Image LV EF (%): 59 Stress EDV (mL):113 TID: 1.06 Stress ESV (mL):46 FUNCTIONAL FINDINGS: Segmental wall motion analysis revealing no gross wall motion abnormalities IMPRESSIONS 1. Myocardial perfusion imaging revealing uniform myocardial tracer uptake with no significant Perfusion abnormalities 2. Normal LV ejection fraction of 59%.. 3. LV wall motion analysis revealing no gross wall motion abnormalities. 4. Normal LV volume Low probability for coronary ischemia, based on the above findings Dr Rosaura Rios MD [facility] (Electronically Signed) Final Date: 16 July 2024 13:12 S
[2024-07-17 06:44] LABS: Amylase <10 U/L (21-101)
== END 2024-07-16 14:55 | disposition home or self-care (01) | DRG 641 ==
LOC: ER 15:29 → MEDSURG 16:43
PROVIDERS: Admitting Provider Student in an Organized Health Care Education/Training Program; Emergency Provider Emergency Medicine; Visit Provider Student in an Organized Health Care Education/Training Program
DX: E87.1 Hypo-osmolality and hyponatremia (principal); R07.9 Chest pain, unspecified; I10 Essential (primary) hypertension; N40.0 Benign prostatic hyperplasia without lower urinary tract symptoms; Z82.3 Family history of stroke; E86.0 Dehydration; F10.90 Alcohol use, unspecified, uncomplicated; Y90.0 Blood alcohol level of less than 20 mg/100 ml
CPT/HCPCS: 36415; 71045; 78452; 80048; 80053; 80061; 80307; 81001; 82150; 82436; 82607; 82746; 83036; 83540; 83550; 83735; 84100; 84133; 84145; 84300; 84443; 84484; 85025; 93005; 93017; 93306; 94664; 96372; 96375; 99285; A9500; J1644; J2470; J2785; J3411; J7030